=== PATIENT | female | born 1970 | race Caucasian/White ===

== ENCOUNTER 2017-10-27 21:58 | Emergency (ER) | payer OTHER ==
[~2017-10-27] VITALS: Ht 165.1 cm; Wt 86.2 kg
--- NOTE | 2017-10-28 00:15 | NUR ---
TO BED 3 AMBULATORY C/O LLQ ABDOMINAL PAIN X3 DAYS. PT AAOX4 NO ACUTE DISTRESS NOTED, RESP EVEN AND UNLABORED. PLACE PT ON CARDIAC MONITORING, CONTINUOUS POX. PENDING ER MD VILLALTA.
--- NOTE | 2017-10-28 00:21 | NUR ---
BRAD LEIVA AT BEDSIDE TO PAWAN CHAN.
[2017-10-28] MEDS ORDERED: ONDANSETRON HCL/PF 4 MG/2 ML VIAL ONE (00:46)
[2017-10-28] MEDS ORDERED: KETOROLAC TROMETHAMINE INJ 30 MG/ML VIAL ONE (00:49)
[2017-10-28 00:51] LABS: APPEARANCE,URINE SL CLOUDY (CLEAR); BASOPHILS % (AUTO) 0.3 % (0.0-2.0); BILIRUBIN,URINE NEGATIVE (NEGATIVE); BLOOD, URINE 2+ Ery/uL (NEGATIVE); COLOR,URINE YELLOW (YELLOW); EOSINOPHILS # (AUTO) 0.2 /CMM (0.0-0.7); HEMATOCRIT 33 % (33-45); HEMOGLOBIN 11.2 g/dL (11.5-14.8); KETONES,URINE NEGATIVE (NEGATIVE); LEUKOCYTE ESTERASE ,URINE NEGATIVE (NEGATIVE); LYMPHOCYTES # (AUTO) 3.1 /CMM (0.8-4.8); LYMPHOCYTES % (AUTO) 40.3 % (20.0-44.0); MEAN CORPUSCULAR HEMOGLOBIN 30 PG (26.0-33.0); MEAN CORPUSCULAR HGB CONC 34 g/dl (31.0-36.0); MEAN CORPUSCULAR VOLUME 87 fL (82-100); MONOCYTES # (AUTO) 0.4 /CMM (0.1-1.30); MONOCYTES % (AUTO) 5.2 % (2.0-12.0); NEUTROPHILS # (AUTO) 4.1 /CMM (1.8-8.9); NEUTROPHILS % (AUTO) 52.2 % (43.0-81.0); NITRITE, URINE NEGATIVE (NEGATIVE); PLATELET COUNT (AUTO) 366 /CMM (150-450); PROTEIN,URINE NEGATIVE (NEGATIVE); RDW COEFFICIENT OF VARIATION 13.8 (11.5-15.0); RED BLOOD CELL COUNT(AUTO) 3.76 MIL/uL (4.0-5.2); UGLUCOSE NEGATIVE (NEGATIVE); UROBILINOGEN,URINE 0.2 EU/dL (0.2); WHITE BLOOD COUNT (AUTO) 7.8 K/uL (4.3-11.0)
--- NOTE | 2017-10-28 00:52 | NUR ---
RNA T BEDSIDE TO MEDICATE PT.
[2017-10-28 00:57] LABS: BACTERIA,URINE None seen /HPF (None Seen); SQUAMOUS EPITHELIAL CELL,UR Moderate /HPF (None Seen); WBC,URINE 0-2 /HPF (0-3)
[2017-10-28] MEDS ORDERED: IV NS 0.9% 1,000 ML BAG IV ONE (01:00)
[2017-10-28] MEDS ORDERED: ONDANSETRON HCL/PF 4 MG/2 ML VIAL IVP ONE (01:00)
[2017-10-28] MEDS ORDERED: KETOROLAC TROMETHAMINE INJ 30 MG/ML VIAL IV ONE (01:00)
[2017-10-28] MEDS ORDERED: MORPHINE SULFATE INJ 2 MG/ML DISP.SYRIN IV ONE (01:00)
[2017-10-28 01:07] LABS: ALBUMIN 3.5 g/dL (3.4-5.0); BILIRUBIN,TOTAL 0.2 mg/dL (0.2-1.0); CALCIUM, SERUM 9.1 mg/dL (8.5-10.1); CREATININE 0.6 mg/dL (0.6-1.3); TOTAL PROTEIN, SERUM 7.5 g/dL (6.4-8.2)
--- NOTE | 2017-10-28 01:23 | NUR ---
PT TRANSPORTED TO RADIOLOGY FOR CT ABD/PELVIS.
--- NOTE | 2017-10-28 01:36 | NUR ---
PT BACK FROM RADIOLOGY. PENDING CT ABD/PELVIS RESULT.
--- NOTE | 2017-10-28 03:09 | NUR ---
DANIEL HARRIS AT BEDSIDE.
--- NOTE | 2017-10-28 03:31 | NUR ---
PELVIC DANIEL DONE.
--- NOTE | 2017-10-28 04:45 | NUR ---
IV removed. Catheter intact and site benign. Pressure and 4x4 applied to site. No bleeding noted. Patient discharged to home in stable condition. Written and verbal after care instructions given. Patient verbalizes understanding of instruction. pt daughter at bedside to take pt home.
[2017-10-28 04:47] VITALS: BP 132/76
== END 2017-10-28 04:48 | disposition home or self-care (01) ==
LOC: ER 22:10
DX: D25.9 Leiomyoma of uterus, unspecified (principal)
CPT/HCPCS: 36415; 74176; 76856; 80048; 80076; 81001; 83690; 84703; 85025; 96361; 96374; 96375; 99285; A4606; J1885; J2405; Z7610; 81000-TC

== ENCOUNTER → 2019-06-03 | Emergency (ER) | payer OTHER ==
[~2019-06-03] VITALS: Ht 165.1 cm; Wt 90.7 kg
[~2019-06-03] MED LIST: IV NS 0.9% 500 ML BAG IV ONE; MORPHINE SULFATE INJ 2 MG/ML DISP.SYRIN IV ONE; MORPHINE SULFATE INJ 4 MG/ML DISP.SYRIN ONE; ONDANSETRON HCL/PF 4 MG/2 ML VIAL IVP ONE; ONDANSETRON HCL/PF 4 MG/2 ML VIAL ONE
--- NOTE | 2019-06-03 20:45 | NUR ---
PT BIB DAUGHTER C/O ABD PAIN X1 DAY. +N/-V. "SOUR/BITTER TASTE IN MOUTH" PT IS AAOX4, NOT IN RESPIRATORY DISTRESS V/S STABLE, KEPT RESTED AND COMFORTABLE, WILL CONTINUE TO MONITOR.
--- NOTE | 2019-06-03 21:10 | NUR ---
URINE SPECIMEN COLLECTED AND SENT TO LAB.
--- NOTE | 2019-06-03 21:24 | NUR ---
IV LINE ESTABLISHED, BLOOD DRAWNED AND SENT TO LAB.
[2019-06-03 21:27] LABS: BILIRUBIN,URINE NEGATIVE (NEGATIVE); BLOOD, URINE 2+ Ery/uL (NEGATIVE); COLOR,URINE YELLOW (YELLOW); KETONES,URINE NEGATIVE (NEGATIVE); LEUKOCYTE ESTERASE ,URINE NEGATIVE (NEGATIVE); NITRITE, URINE NEGATIVE (NEGATIVE); PROTEIN,URINE NEGATIVE (NEGATIVE); UGLUCOSE NEGATIVE (NEGATIVE); UROBILINOGEN,URINE 0.2 EU/dL (0.2)
[2019-06-03 21:28] LABS: BASOPHILS % (AUTO) 0.3 % (0.0-2.0); EOSINOPHILS % (AUTO) 1.3 % (0.0-6.0); HEMATOCRIT 36 % (33-45); LYMPHOCYTES # (AUTO) 1.4 /CMM (0.8-4.8); LYMPHOCYTES % (AUTO) 20.5 % (20.0-44.0); MEAN CORPUSCULAR HGB CONC 33 g/dl (31.0-36.0); MEAN CORPUSCULAR VOLUME 91 fL (82-100); MONOCYTES # (AUTO) 0.3 /CMM (0.1-1.30); MONOCYTES % (AUTO) 4.7 % (2.0-12.0); NEUTROPHILS % (AUTO) 73.2 % (43.0-81.0); PLATELET COUNT (AUTO) 303 /CMM (150-450); RED BLOOD CELL COUNT(AUTO) 3.95 MIL/uL (4.0-5.2); WHITE BLOOD COUNT (AUTO) 6.8 K/uL (4.3-11.0)
[2019-06-03 21:39] LABS: APPEARANCE,URINE HAZY (CLEAR); BACTERIA,URINE Rare /HPF (None Seen); CREATININE 0.7 mg/dL (0.6-1.3); POTASSIUM 3.7 mmol/L (3.5-5.1); SQUAMOUS EPITHELIAL CELL,UR Moderate /HPF (None Seen); WBC,URINE 0-2 /HPF (0-3)
[2019-06-03 21:44] LABS: ALBUMIN 3.5 g/dL (3.4-5.0); BILIRUBIN,DIRECT 0.1 mg/dL (0.0-0.2); BILIRUBIN,TOTAL 0.2 mg/dL (0.2-1.0)
--- NOTE | 2019-06-03 23:03 | NUR ---
PT WHEELED TO CT SCAN VIA [employer].
--- NOTE | 2019-06-04 01:26 | NUR ---
Patient discharged to home in stable condition. Written and verbal after care instructions given. Patient verbalizes understanding of instruction.
[2019-06-04 01:27] VITALS: BP 132/65
== END | disposition home or self-care (01) ==
LOC: ER 19:44
DX: D25.9 Leiomyoma of uterus, unspecified (principal); I10 Essential (primary) hypertension; R19.7 Diarrhea, unspecified; R10.2 Pelvic and perineal pain; R10.11 Right upper quadrant pain
CPT/HCPCS: 36415; 74176; 80048; 80076; 81001; 83690; 84703; 85025; 96361; 96374; 96375; 99284; J2270; J2405; J7040; 81000-TC

== ENCOUNTER 2020-07-11 01:46 | Emergency (ER) | payer OTHER ==
[~2020-07-11] VITALS: Ht 162.6 cm; Wt 90.7 kg
--- NOTE | 2020-07-11 02:02 | NUR ---
PT BIB FRIEND C/O FEVER AND SOB X 45 MINS [employer]. 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 PT AAOX4, SATTING 98% ON RA, NOT IN RESPIRATORY DISTRESS. PT CONNECTED TO THE MONITOR AND POX.
[2020-07-11] MEDS ORDERED: METOCLOPRAMIDE HCL 10 MG/2 ML VIAL ONE (02:47)
[2020-07-11] MEDS ORDERED: IBUPROFEN 600 MG TABLET PO ONE (02:48)
[2020-07-11] MEDS: IV NS 0.9% 1,000 ML IV ONE (03:00)
[2020-07-11] MEDS: METOCLOPRAMIDE HCL 10 MG/2 ML VIAL IV ONE (03:00)
[2020-07-11] MEDS ORDERED: IV NS 0.9% 1,000 ML IV ONE (03:00)
[2020-07-11] MEDS: IBUPROFEN 600 MG TABLET PO ONE (03:01)
--- NOTE | 2020-07-11 03:07 | NUR ---
BLOOD WORK SENT TO LAB
--- NOTE | 2020-07-11 03:07 | NUR ---
COVID SWAB SENT TO LAB
[2020-07-11 03:16] LABS: BASOPHILS % (AUTO) 0.6 % (0.0-2.0); EOSINOPHILS % (AUTO) 0.8 % (0.0-6.0); HEMATOCRIT 36 % (33-45); LYMPHOCYTES # (AUTO) 1.7 /CMM (0.8-4.8); MEAN CORPUSCULAR HGB CONC 33 g/dl (31.0-36.0); MEAN CORPUSCULAR VOLUME 91 fL (82-100); MONOCYTES # (AUTO) 0.3 /CMM (0.1-1.30); MONOCYTES % (AUTO) 6.5 % (2.0-12.0); NEUTROPHILS # (AUTO) 2.9 /CMM (1.8-8.9); NEUTROPHILS % (AUTO) 58.1 % (43.0-81.0); PLATELET COUNT (AUTO) 272 /CMM (150-450); RED BLOOD CELL COUNT(AUTO) 3.95 MIL/uL (4.0-5.2)
[2020-07-11] MEDS ORDERED: IV NS 0.9% 500 ML BAG IV ONE (03:30)
[2020-07-11 03:50] LABS: CALCIUM, SERUM 9.3 mg/dL (8.5-10.1); CARBON DIOXIDE 27 mmol/L (21-32); CHLORIDE 102 mmol/L (98-107); CREATININE 0.7 mg/dL (0.6-1.3); GLUCOSE 101 mg/dL (74-106); POTASSIUM 3.8 mmol/L (3.5-5.1); SODIUM SERUM 137 mmol/L (136-145); UREA NITROGEN, BLOOD 12 mg/dL (7-18)
[2020-07-11 04:03] LABS: ALANINE AMINOTRANSFERASE 33 U/L (12-78); ALBUMIN 3.8 g/dL (3.4-5.0); ALKALINE PHOSPHATASE 62 U/L (46-116); ASPARTATE AMINOTRANSFERASE 20 U/L (15-37); B-TYPE NATRIURETIC PEPTIDE 17 PG/ML (0-125); BILIRUBIN,DIRECT 0.1 mg/dL (0.0-0.2); BILIRUBIN,TOTAL 0.2 mg/dL (0.2-1.0); TOTAL PROTEIN, SERUM 7.8 g/dL (6.4-8.2)
--- NOTE | 2020-07-11 04:25 | NUR ---
IV removed. Catheter intact and site benign. Pressure and 4x4 applied to site. No bleeding noted.
[2020-07-11 04:30] VITALS: BP 134/75
--- NOTE | 2020-07-11 04:30 | NUR ---
Patient discharged to home in stable condition. Written and verbal after care instructions given. Patient verbalizes understanding of instruction.
--- NOTE | 2020-07-12 10:52 | NUR ---
CALLED PT FOR COVID RESULT.
== END 2020-07-11 04:31 | disposition home or self-care (01) ==
LOC: ER 01:48
DX: U07.1 COVID-19 (principal); I10 Essential (primary) hypertension; E11.9 Type 2 diabetes mellitus without complications
CPT/HCPCS: 36415; 71045; 80048; 80076; 83880; 84484; 85025; 93005; 96361; 96374; 99285; C9803; J2765; J7030; U0003

== ENCOUNTER 2020-08-26 09:37 | Emergency (ER) | payer OTHER ==
[~2020-08-26] VITALS: Ht 165.1 cm; Wt 76.2 kg
--- NOTE | 2020-08-26 09:55 | NUR ---
BIBFAMILY, C/O GENERALIZED RASHES (HIVES), SEEN AT [facility] 2 DAYS AGO GIVEN A STEROID SHOT. PATEINT A/OX4, BREATHING EVEN AND UNLABORED, NO SOB NOTED. NEEDS ATTENDED, KEPT COMFORTABLE.
[2020-08-26] MEDS ORDERED: methylPREDNISolone SOD SUCC 125 MG/2ML VIAL ONE (10:07)
[2020-08-26] MEDS ORDERED: diphenhydrAMINE HCL 50 MG/ML VIAL ONE (10:07)
[2020-08-26] MEDS ORDERED: FAMOTIDINE (20 MG) 20 MG TABLET ONE (10:07)
[2020-08-26] MEDS: FAMOTIDINE (20 MG) 20 MG TABLET PO ONE (10:16)
[2020-08-26] MEDS: methylPREDNISolone SOD SUCC 125 MG/2ML VIAL IM ONE (10:16)
[2020-08-26] MEDS: diphenhydrAMINE HCL 50 MG/ML VIAL IM ONE (10:16)
[2020-08-26] MEDS ORDERED: IBUPROFEN 600 MG TABLET ONE (10:26)
[2020-08-26] MEDS: IBUPROFEN 600 MG TABLET PO ONE (10:30)
--- NOTE | 2020-08-26 10:30 | NUR ---
PATIENT GIVEN MOTRIN FOR PAIN.
--- NOTE | 2020-08-26 11:28 | NUR ---
PT IN BED W/ FAMILY AT BEDSIDE. NOT IN RESP DISTRESS. AAOX4.
--- NOTE | 2020-08-26 11:41 | NUR ---
PT STS ITCHING HAS IMPROVED, HOWEVER, HIVES ARE STILL THE SAME.
--- NOTE | 2020-08-26 12:48 | NUR ---
PATIENT A/OX4, RASHES AND ITCHING HAS DIMINISHED, AMBULATORY WITH STEADY GAIT. DAUGHTER AT BEDSIDE. Patient discharged to home in stable condition. Written and verbal after care instructions given. Patient verbalizes understanding of instruction.
[2020-08-26 12:49] VITALS: BP 121/76
== END 2020-08-26 12:50 | disposition home or self-care (01) ==
LOC: ER 09:43
DX: L50.9 Urticaria, unspecified (principal); I10 Essential (primary) hypertension
CPT/HCPCS: 96372 ×2; 99284; J1200; J2930

== ENCOUNTER 2024-04-18 00:12 | Emergency (ER) | payer MEDICAID, OTHER ==
[~2024-04-18] VITALS: Ht 165.1 cm; Wt 68.0 kg
[2024-04-18] MEDS ORDERED: MORPHINE SULFATE INJ 2 MG/ML DISP.SYRIN ONE (00:49)
[2024-04-18] MEDS ORDERED: ONDANSETRON HCL/PF 4 MG/2 ML VIAL ONE (00:49)
[2024-04-18] MEDS: IV NS 0.9% 1,000 ML BAG IV ONE (01:07)
[2024-04-18 01:24] LABS: BASOPHILS % (AUTO) 0.3 % (0.0-2.0); EOSINOPHILS # (AUTO) 0.1 K/uL (0.0-0.7); EOSINOPHILS % (AUTO) 0.6 % (0.0-6.0); HEMATOCRIT 32 % (33-45); HEMOGLOBIN 10.8 g/dL (11.5-14.8); LYMPHOCYTES # (AUTO) 1.8 K/uL (0.8-4.8); MEAN CORPUSCULAR HEMOGLOBIN 30 PG (26.0-33.0); MEAN CORPUSCULAR HGB CONC 34 g/dl (31.0-36.0); MEAN CORPUSCULAR VOLUME 90 fL (82-100); MONOCYTES # (AUTO) 0.8 K/uL (0.1-1.30); MONOCYTES % (AUTO) 5.3 % (2.0-12.0); NEUTROPHILS # (AUTO) 12.4 K/uL (1.8-8.9); NEUTROPHILS % (AUTO) 81.8 % (43.0-81.0); PLATELET COUNT (AUTO) 316 K/uL (150-450); RED BLOOD CELL COUNT(AUTO) 3.58 MIL/uL (4.0-5.2); RED CELL DISTRIBUTION WIDTH 13.8 % (11.5-15.0); WHITE BLOOD COUNT (AUTO) 15.1 K/uL (4.3-11.0)
[2024-04-18 01:42] LABS: CALCIUM, SERUM 9.1 mg/dL (8.5-10.1); CARBON DIOXIDE 25 mmol/L (21-32); CHLORIDE 100 mmol/L (98-107); CREATININE 0.7 mg/dL (0.6-1.3); GLUCOSE 171 mg/dL (74-106); SODIUM SERUM 135 mmol/L (136-145); UREA NITROGEN, BLOOD 11 mg/dL (7-18)
[2024-04-18 01:48] LABS: ALANINE AMINOTRANSFERASE 47 U/L (12-78); ALKALINE PHOSPHATASE 84 U/L (46-116); ASPARTATE AMINOTRANSFERASE 21 U/L (15-37); BILIRUBIN,DIRECT 0.1 mg/dL (0.0-0.2); BILIRUBIN,TOTAL 0.3 mg/dL (0.2-1.0); LIPASE 27 U/L (16-77); TOTAL PROTEIN, SERUM 7.4 g/dL (6.4-8.2)
[2024-04-18 01:51] LABS: INR 0.94 (0.91-1.10); PARTIAL THROMBOPLASTIN TIME 29.1 SEC (24.3-34.3)
[2024-04-18] MEDS: MORPHINE SULFATE INJ 2 MG/ML DISP.SYRIN IV ONE (01:59)
[2024-04-18] MEDS: ONDANSETRON HCL/PF 4 MG/2 ML VIAL IV ONE (01:59)
[2024-04-18] MEDS ORDERED: MAG HYDROX/AL HYDROX/SIMETH 30 ML UDC ONE (02:05)
[2024-04-18] MEDS ORDERED: FAMOTIDINE/PF INJ 20 MG/2 ML VIAL IV ONE (02:05)
[2024-04-18] MEDS: FAMOTIDINE/PF INJ 20 MG/2 ML VIAL IV ONE (02:18)
[2024-04-18] MEDS: MAG HYDROX/AL HYDROX/SIMETH 30 ML UDC PO ONE (02:18)
[2024-04-18 04:21] LABS: APPEARANCE,URINE CLEAR (CLEAR); BILIRUBIN,URINE NEGATIVE (NEGATIVE); BLOOD, URINE 2+ Ery/uL (NEGATIVE); COLOR,URINE YELLOW (YELLOW); KETONES,URINE NEGATIVE (NEGATIVE); LEUKOCYTE ESTERASE ,URINE TRACE (NEGATIVE); NITRITE, URINE NEGATIVE (NEGATIVE); PROTEIN,URINE NEGATIVE (NEGATIVE); UGLUCOSE NEGATIVE (NEGATIVE); UROBILINOGEN,URINE 0.2 EU/dL (0.2)
[2024-04-18 04:22] LABS: ADD URINE CULTURE NO; BACTERIA,URINE None seen /HPF (None Seen); SQUAMOUS EPITHELIAL CELL,UR Few /HPF (None Seen); WBC,URINE 0-2 /HPF (0-3)
[2024-04-18 09:06] VITALS: BP 128/72; TEMP 98.3; O2SAT 98
[2024-04-24] MEDS ORDERED: CEFD300C3 PO (07:41)
== END 2024-04-18 09:07 | disposition home or self-care (01) ==
LOC: ER 00:13
DX: R10.13 Epigastric pain (principal); R19.7 Diarrhea, unspecified; R11.0 Nausea; I10 Essential (primary) hypertension; Z98.890 Other specified postprocedural states; Z20.822 Contact with and (suspected) exposure to COVID-19; F10.10 Alcohol abuse, uncomplicated; Y90.9 Presence of alcohol in blood, level not specified
CPT/HCPCS: 99285; 74176; 96374; 71045; 96361; 87426; 93005 ×2; 85025; 80048; 87086; 83690; 80076; 81001; 36415; 87493; 84484; 85730; J3490; J2405; J7030; J2270